=== PATIENT | female | born 1990 | race African-American/Black ===

== ENCOUNTER 2023-03-02 18:08 | Day surgery (SDC) | payer OTHER ==
[~2023-03-02 18:08] MED LIST: FERRIC CARBOXYMALTOSE 750 MG in SODIUM CHLORIDE 250 ML IVPB ONE
[2023-03-02 18:17] VITALS: BP 168/95; PULSE 102; RESP 20; TEMP 98
== END 2023-03-02 18:15 | disposition home or self-care (01) ==
LOC: JONCNONCHE 18:08
PROVIDERS: ATTEND Internal Medicine Hematology & Oncology
PROC: 3E033GC Introduction of Other Therapeutic Substance into Peripheral Vein, Percutaneous Approach (ICD-10-PCS; principal; 2023-03-02)
DX: D50.9 Iron deficiency anemia, unspecified (principal)
CPT/HCPCS: 96365; J1439